=== PATIENT | male | born 1980 | race Caucasian/White ===

== ENCOUNTER → 2016-09-26 | Day surgery (SDC) | payer MEDICAID ==
[~2016-09-26] VITALS: Ht 180.3 cm; Wt 87.1 kg
[~2016-09-26] MED LIST: PROAIR HFA8.5 GM INH
== END | disposition disaster alternative care site (69) ==
LOC: GPOC 09-24 10:00 → GEND 08:38
PROC: 0DBB8ZX Excision of Ileum, Via Natural or Artificial Opening Endoscopic, Diagnostic (ICD-10-PCS; principal; 2016-09-26)
DX: R19.7 Diarrhea, unspecified (principal); F17.210 Nicotine dependence, cigarettes, uncomplicated; Z88.8 Allergy status to other drugs, medicaments and biological substances; Z79.2 Long term (current) use of antibiotics
CPT/HCPCS: J7030